=== PATIENT | male | born 1990 | race Hispanic/Latino ===

== ENCOUNTER 2018-05-07 08:32 | Emergency (ER) | payer OTHER ==
[2018-05-07] MEDS ORDERED: KETOROLAC TROMETHAMINE 60 MG/2 ML VIAL ONE (09:06)
[2018-05-07] MEDS ORDERED: DEXAMETHASONE SOD PHOSPHATE 10MG/ML 1ML VIAL ONE (09:06)
[2018-05-07] MEDS ORDERED: PEN G BENZ/PEN G PROCAINE 1,200,000 UNIT/2 ML ML IM ONE (09:50)
== END 2018-05-07 10:00 | disposition home or self-care (01) ==
LOC: EDH 08:32
DX: J02.0 Streptococcal pharyngitis (principal)
CPT/HCPCS: 87880; 96372 ×3; 99283; J0558; J1100; J1885

== ENCOUNTER 2019-10-13 10:10 | Inpatient (IN) | payer OTHER ==
[~2019-10-13] VITALS: Ht 162.6 cm; Wt 89.1 kg
[2019-10-13] MEDS ORDERED: ONDANSETRON HCL 4 MG/2 ML VIAL ONE (10:20)
[2019-10-13] MEDS ORDERED: FAMOTIDINE/PF 20 MG/2 ML VIAL IV ONE (10:20)
[2019-10-13 10:43] LABS: BASOPHILS % (AUTO) 0.1 % (0.0-5.0); LYMPHOCYTES % (AUTO) 5.1 % (21.0-51.0); MEAN CORPUSCULAR HEMOGLOBIN 29.6 pg (27.0-33.0); MEAN CORPUSCULAR HGB CONC 34.3 g/dL (32.0-36.0); MEAN CORPUSCULAR VOLUME 86.3 fL (79-99); MONOCYTES % (AUTO) 2.1 % (3.0-13.0); NEUTROPHILS % (AUTO) 92.4 % (40.0-77.0); PLATELET COUNT (AUTO) 311 K/uL (130-400); RED BLOOD CELL COUNT(AUTO) 5.68 MIL/uL (4.50-6.20); RED CELL DISTRIBUTION WIDTH 13.1 % (11.0-15.5); WHITE BLOOD COUNT (AUTO) 12.1 K/uL (4.8-10.8)
[2019-10-13] MEDS ORDERED: MORPHINE SULFATE 4 MG/1ML SYG ONE (10:49)
[2019-10-13 11:09] LABS: ALBUMIN 4.3 g/dL (3.5-5.0); BILIRUBIN,TOTAL 0.5 mg/dL (0.2-1.0); POTASSIUM 4.1 mmol/L (3.5-5.1); TOTAL PROTEIN, SERUM 8.9 g/dL (6.0-8.3)
[2019-10-13 12:39] LABS: APPEARANCE,URINE Clear (CLEAR); BILIRUBIN,URINE Negative (NEGATIVE); COLOR,URINE Dark Yellow (YELLOW); GLUCOSE, URINE (UA) Negative (NEGATIVE); KETONES,URINE 15 mg/dL (NEGATIVE); LEUKOCYTE ESTERASE ,URINE Negative (NEGATIVE); NITRATE,URINE Negative (NEGATIVE); OCCULT BLOOD,URINE Negative (NEGATIVE); PROTEIN,URINE Trace mg/dL (NEGATIVE)
[2019-10-13] MEDS ORDERED: ONDANSETRON HCL 4 MG/2 ML VIAL IV PRN (12:45)
[2019-10-13 13:21] LABS: BACTERIA,URINE Rare /HPF (None Seen); MUCUS,URINE Few LPF (None Seen); RBC,URINE 0-1 /HPF (0-1); SQUAMOUS EPITHELIAL CELL,UR Rare /HPF (0-2); WBC,URINE 0-1 /HPF (0-1)
[2019-10-13 14:26] VITALS: BP 139/76
[2019-10-13] MEDS: SODIUM CHLORIDE 0.9% 1000ML 1,000 ML IV SCH ×2 (16:26→16:29)
[2019-10-13] MEDS: METRONIDAZOLE 500 MG TABLET PO SCH ×2 (16:28→21:05)
[2019-10-13] MEDS: ZOSYN 3.375GM+NS 50ML 50 ML IV SCH ×2 (16:28→21:05)
[2019-10-13] MEDS: MORPHINE SULFATE 2 MG/ML 1ML SYG IV PRN (16:29)
--- NOTE | 2019-10-13 16:30 | NUR ---
MEDICATED FOR ABD. PAIN.
[2019-10-13 16:36] VITALS: BP 135/81
[2019-10-13] MEDS: METOCLOPRAMIDE 10 MG/2 ML VIAL IVP SCH (18:35)
[2019-10-13] MEDS: FAMOTIDINE/PF 20 MG/2 ML VIAL IV SCH (18:36)
[2019-10-13 20:00] VITALS: BP 127/73
[2019-10-14] VITALS (25 sets, daily range): BP systolic 112–130; BP diastolic 60–85
[2019-10-14] MEDS: METOCLOPRAMIDE 10 MG/2 ML VIAL IVP SCH ×4 (00:06→17:50)
[2019-10-14] MEDS: SODIUM CHLORIDE 0.9% 1000ML 1,000 ML IV SCH ×2 (03:54→18:39)
[2019-10-14 05:31] LABS: BASOPHILS % (AUTO) 0.2 % (0.0-5.0); EOSINOPHILS % (AUTO) 0.4 % (0.0-8.0); HEMATOCRIT 43.4 % (42-54); LYMPHOCYTES % (AUTO) 14.8 % (21.0-51.0); MEAN CORPUSCULAR HEMOGLOBIN 30.2 pg (27.0-33.0); MEAN CORPUSCULAR HGB CONC 34.3 g/dL (32.0-36.0); MEAN CORPUSCULAR VOLUME 87.9 fL (79-99); MONOCYTES % (AUTO) 5.8 % (3.0-13.0); NEUTROPHILS % (AUTO) 78.4 % (40.0-77.0); PLATELET COUNT (AUTO) 285 K/uL (130-400); RED BLOOD CELL COUNT(AUTO) 4.94 MIL/uL (4.50-6.20); RED CELL DISTRIBUTION WIDTH 13.3 % (11.0-15.5); WHITE BLOOD COUNT (AUTO) 10.1 K/uL (4.8-10.8)
[2019-10-14 06:05] LABS: ALBUMIN 3.6 g/dL (3.5-5.0); BILIRUBIN,TOTAL 0.7 mg/dL (0.2-1.0); TOTAL PROTEIN, SERUM 7.6 g/dL (6.0-8.3)
[2019-10-14] MEDS: ZOSYN 3.375GM+NS 50ML 50 ML IV SCH ×4 (06:08→20:38)
[2019-10-14] MEDS: FAMOTIDINE/PF 20 MG/2 ML VIAL IV SCH ×2 (08:38→20:37)
[2019-10-14] MEDS: MORPHINE SULFATE 2 MG/ML 1ML SYG IV PRN ×2 (08:50→17:51)
[2019-10-14] MEDS: METRONIDAZOLE 500 MG TABLET PO SCH (09:00)
--- NOTE | 2019-10-14 09:30 | NUR ---
TRANSFER pt returned from PACU via bed dressing right foot clean and dry evert wrap ,awake denies any pain
[2019-10-14] MEDS ORDERED: LACTATED RINGERS 1000ML 1,000 ML IV ONE (12:33)
[2019-10-14] MEDS ORDERED: SUCCINYLCHOLINE CHLORIDE 20 MG/ML 10 ML VIAL ONE ×2 (12:51→12:54)
[2019-10-14] MEDS ORDERED: PROPOFOL 10 MG/ML 20ML VIAL IV ONE (12:51)
[2019-10-14] MEDS ORDERED: MIDAZOLAM HCL 1 MG/ML 2ML VIAL ONE ×2 (12:51→14:25)
[2019-10-14] MEDS ORDERED: LIDOCAINE PF 2% 5ML ABBOJECT ONE (12:51)
[2019-10-14] MEDS ORDERED: FENTANYL CITRATE PF 50 MCG/1 ML 2ML VIAL ONE ×2 (12:52→14:04)
[2019-10-14] MEDS ORDERED: ROCURONIUM 10MG/1ML SYR 10 MG/ML ML ONE ×2 (12:52→13:34)
--- NOTE | 2019-10-14 13:05 | NUR ---
DCP CM spoke to pt discussed dc plans. Pt is independent prior to admission, lives at home with spouse. Denies any equipments/services. Uses [facility] for meds. Feels safe to go back home, still drives and works, spouse able to assist with transportation and needs as necessary. Pt is self pay, no SS#, [facility] assisting, given [employer] packet. Patient verbalized 2nd emergency contact in case needed, sister in law Arslan Sanford . DC plan to home once stable. CM to cont to follow up. Addendum: 10/14/19 at 1308 by JULIUS DOMINGUEZ LVN CM Amended: Links added.
[2019-10-14] MEDS ORDERED: BUPIVACAINE/PF 0.5% 30ML VIAL ONE (13:57)
[2019-10-14] MEDS ORDERED: GLYCOPYRROLATE 1 MG/5 ML SYRINGE ONE ×2 (13:58→13:59)
[2019-10-14] MEDS ORDERED: NEOSTIGMINE 5MG/5ML SYR IV ONE (13:59)
[2019-10-14] MEDS ORDERED: ONDANSETRON HCL 4 MG/2 ML VIAL ONE (14:02)
[2019-10-14] MEDS ORDERED: DEXAMETHASONE SOD PHOSPHATE 10MG/ML 1ML VIAL ONE (14:02)
[2019-10-14] MEDS ORDERED: MEPERIDINE-PF 25 MG/ML SYG ONE (14:42)
[2019-10-14] MEDS: METRONIDAZOLE 500MG/100ML BAG 100 ML IV SCH (22:15)
[2019-10-15] VITALS (7 sets, daily range): BP systolic 108–128; BP diastolic 51–65
[2019-10-15] MEDS: METOCLOPRAMIDE 10 MG/2 ML VIAL IVP SCH ×4 (00:10→18:16)
[2019-10-15] MEDS: MORPHINE SULFATE 2 MG/ML 1ML SYG IV PRN ×2 (00:14→10:47)
--- NOTE | 2019-10-15 00:14 | NUR ---
ERASMO Pt encouraged to do IS. Addendum: 10/15/19 at 1309 by CHARIS GOLDMAN RN RN PAIN Medicated with Morphine for pain.
--- NOTE | 2019-10-15 04:00 | NUR ---
ACTIVITY Pt encouraged to get up,out of bed,states it hurts too much.Encouraged to TCDB and do IS,able to perform and teach back instructions given.
[2019-10-15 04:36] LABS: BASOPHILS % (AUTO) 0.2 % (0.0-5.0); HEMATOCRIT 39.5 % (42-54); LYMPHOCYTES % (AUTO) 7.6 % (21.0-51.0); MEAN CORPUSCULAR HEMOGLOBIN 29.6 pg (27.0-33.0); MEAN CORPUSCULAR HGB CONC 33.9 g/dL (32.0-36.0); MEAN CORPUSCULAR VOLUME 87.4 fL (79-99); MONOCYTES % (AUTO) 6.4 % (3.0-13.0); NEUTROPHILS % (AUTO) 85.4 % (40.0-77.0); PLATELET COUNT (AUTO) 268 K/uL (130-400); RED BLOOD CELL COUNT(AUTO) 4.52 MIL/uL (4.50-6.20); WHITE BLOOD COUNT (AUTO) 11.9 K/uL (4.8-10.8)
[2019-10-15 04:47] LABS: CREATININE 0.9 mg/dL (0.5-1.5); POTASSIUM 4.3 mmol/L (3.5-5.1)
[2019-10-15] MEDS: SODIUM CHLORIDE 0.9% 1000ML 1,000 ML IV SCH ×2 (04:50→14:39)
[2019-10-15] MEDS: METRONIDAZOLE 500MG/100ML BAG 100 ML IV SCH ×3 (04:50→20:44)
[2019-10-15] MEDS: ZOSYN 3.375GM+NS 50ML 50 ML IV SCH ×3 (04:50→20:44)
[2019-10-15] MEDS: FAMOTIDINE/PF 20 MG/2 ML VIAL IV SCH ×2 (10:46→20:44)
--- NOTE | 2019-10-15 13:00 | NUR ---
SKIN TEAR pt c/o tenderness under abd binder x2 skin tears present from surgical dressing removed 10-15-19 Dr Sun aware of skin tear ,dressed skin tear with non adherent dressing and transparent tegaderm
[2019-10-15] MEDS: KETOROLAC TROMETHAMINE 30MG/ML IV SCH ×2 (16:51→20:00)
--- NOTE | 2019-10-15 19:00 | NUR ---
BOWEL SOUNDS pt states he feels rolling in abdominal area ,hypoactive bowel sounds auscultated
--- NOTE | 2019-10-15 21:00 | NUR ---
POST OP DAY 2 Pt appears more awake and comfortable today,denies pain or discomfort.Abdomen soft,hypoactive bowel sounds.Remains NPO.
[2019-10-16] MEDS: KETOROLAC TROMETHAMINE 30MG/ML IV SCH ×4 (00:14→20:00)
[2019-10-16] MEDS: METOCLOPRAMIDE 10 MG/2 ML VIAL IVP SCH ×5 (00:14→23:27)
[2019-10-16] MEDS: SODIUM CHLORIDE 0.9% 1000ML 1,000 ML IV SCH ×3 (00:39→21:55)
[2019-10-16 04:00] VITALS: BP 107/58
[2019-10-16] MEDS: METRONIDAZOLE 500MG/100ML BAG 100 ML IV SCH ×3 (04:49→21:55)
[2019-10-16] MEDS: ZOSYN 3.375GM+NS 50ML 50 ML IV SCH ×3 (04:49→21:55)
[2019-10-16 05:34] LABS: BASOPHILS % (AUTO) 0.2 % (0.0-5.0); EOSINOPHILS % (AUTO) 0.3 % (0.0-8.0); HEMATOCRIT 38.7 % (42-54); LYMPHOCYTES % (AUTO) 20.9 % (21.0-51.0); MEAN CORPUSCULAR HGB CONC 33.9 g/dL (32.0-36.0); MEAN CORPUSCULAR VOLUME 88.6 fL (79-99); MONOCYTES % (AUTO) 7.7 % (3.0-13.0); NEUTROPHILS % (AUTO) 70.7 % (40.0-77.0); PLATELET COUNT (AUTO) 244 K/uL (130-400); RED BLOOD CELL COUNT(AUTO) 4.37 MIL/uL (4.50-6.20); RED CELL DISTRIBUTION WIDTH 12.7 % (11.0-15.5); WHITE BLOOD COUNT (AUTO) 9.7 K/uL (4.8-10.8)
[2019-10-16 05:46] LABS: BILIRUBIN,TOTAL 0.8 mg/dL (0.2-1.0); CREATININE 0.9 mg/dL (0.5-1.5); POTASSIUM 3.7 mmol/L (3.5-5.1); TOTAL PROTEIN, SERUM 7.1 g/dL (6.0-8.3)
[2019-10-16 08:00] VITALS: BP 115/71
[2019-10-16] MEDS: FAMOTIDINE/PF 20 MG/2 ML VIAL IV SCH ×2 (10:55→21:55)
[2019-10-16 12:00] VITALS: BP 138/85
[2019-10-16 16:00] VITALS: BP 125/82
[2019-10-16 19:20] VITALS: BP 119/68
[2019-10-16 23:29] VITALS: BP 137/86
[2019-10-17] MEDS: KETOROLAC TROMETHAMINE 30MG/ML IV SCH ×3 (01:32→14:00)
[2019-10-17 03:20] VITALS: BP 112/74
[2019-10-17 03:59] LABS: BASOPHILS % (AUTO) 0.1 % (0.0-5.0); EOSINOPHILS % (AUTO) 0.7 % (0.0-8.0); HEMATOCRIT 35.5 % (42-54); LYMPHOCYTES % (AUTO) 21.9 % (21.0-51.0); MEAN CORPUSCULAR HEMOGLOBIN 29.4 pg (27.0-33.0); MEAN CORPUSCULAR HGB CONC 34.1 g/dL (32.0-36.0); MEAN CORPUSCULAR VOLUME 86.4 fL (79-99); MONOCYTES % (AUTO) 7.9 % (3.0-13.0); PLATELET COUNT (AUTO) 249 K/uL (130-400); RED BLOOD CELL COUNT(AUTO) 4.11 MIL/uL (4.50-6.20); RED CELL DISTRIBUTION WIDTH 12.5 % (11.0-15.5); WHITE BLOOD COUNT (AUTO) 8.4 K/uL (4.8-10.8)
[2019-10-17 04:20] LABS: ALBUMIN 2.9 g/dL (3.5-5.0); BILIRUBIN,TOTAL 0.6 mg/dL (0.2-1.0); POTASSIUM 3.7 mmol/L (3.5-5.1); TOTAL PROTEIN, SERUM 6.8 g/dL (6.0-8.3)
[2019-10-17] MEDS: METRONIDAZOLE 500MG/100ML BAG 100 ML IV SCH ×2 (05:15→11:13)
[2019-10-17] MEDS: METOCLOPRAMIDE 10 MG/2 ML VIAL IVP SCH ×2 (05:16→11:09)
[2019-10-17] MEDS: ZOSYN 3.375GM+NS 50ML 50 ML IV SCH ×2 (06:33→11:09)
[2019-10-17] MEDS: SODIUM CHLORIDE 0.9% 1000ML 1,000 ML IV SCH (06:33)
[2019-10-17 08:00] VITALS: BP 126/83
[2019-10-17] MEDS: FAMOTIDINE/PF 20 MG/2 ML VIAL IV SCH (11:08)
[2019-10-17 12:00] VITALS: BP 119/74
== END 2019-10-17 16:45 | disposition home or self-care (01) | DRG 355 ==
LOC: EDH 10:10 → 3CH 10:11
PROVIDERS: ADMIT Hospitalist; ATTEND Hospitalist
PROC: 0D9670Z Drainage of Stomach with Drainage Device, Via Natural or Artificial Opening (ICD-10-PCS; 2019-10-13)
PROC: 0WQF0ZZ Repair Abdominal Wall, Open Approach (ICD-10-PCS; principal; 2019-10-14 12:55)
DX: K43.0 Incisional hernia with obstruction, without gangrene (principal); K43.6 Other and unspecified ventral hernia with obstruction, without gangrene; K21.9 Gastro-esophageal reflux disease without esophagitis; D72.829 Elevated white blood cell count, unspecified; Z90.49 Acquired absence of other specified parts of digestive tract
CPT/HCPCS: 36415; 74176; 80048; 80053; 81001; 83690; 85025; 87040; G0378; J0330; J1100; J1885; J2001; J2175; J2250; J2270; J2405; J2543; J2704; J2710; J2765; J3010; J3490; J7030; J7120

== ENCOUNTER 2023-07-18 02:40 | Emergency (ER) | payer OTHER ==
[~2023-07-18] VITALS: Ht 172.7 cm; Wt 80.7 kg
[2023-07-18] MEDS: MAG/ALUM/SIMETH 30 ML UDCUP PO ONE (02:56)
[2023-07-18] MEDS: LIDOCAINE HCL 2% VISCOUS 15 ML UDCUP PO ONE (02:56)
[2023-07-18] MEDS: LACTATED RINGERS 1000ML 1,000 ML IV ONE (02:56)
[2023-07-18] MEDS: PANTOPRAZOLE 40 MG/VIAL IVP ONE (02:56)
[2023-07-18 03:38] LABS: ALBUMIN 3.6 g/dL (3.5-5.0); BILIRUBIN,TOTAL 0.2 mg/dL (0.2-1.0); CREATININE 0.8 mg/dL (0.5-1.3); POTASSIUM 3.3 mmol/L (3.5-5.1); TOTAL PROTEIN, SERUM 7.3 g/dL (6.0-8.3)
[2023-07-18] MEDS: POTASSIUM BICARB/CIT AC 25 MEQ TABLET.EFF PO STA (04:31)
[2023-07-18 04:32] LABS: APPEARANCE,URINE CLEAR (CLEAR); BILIRUBIN,URINE NEGATIVE (NEGATIVE); COLOR,URINE YELLOW (YELLOW); GLUCOSE, URINE (UA) NEGATIVE (NEGATIVE); KETONES,URINE NEGATIVE (NEGATIVE); LEUKOCYTE ESTERASE ,URINE NEGATIVE Leu/uL (NEGATIVE); NITRATE,URINE NEGATIVE (NEGATIVE); OCCULT BLOOD,URINE NEGATIVE (NEGATIVE); PROTEIN,URINE NEGATIVE (NEGATIVE); UROBILINOGEN,URINE 0.2 mg/dL (0.2-1.0)
[2023-07-18 04:44] LABS: ADD UA MICROSCOPIC NO
[2023-07-18 05:08] LABS: BASOPHILS # (AUTO) 0.02 K/uL (0.00-0.20); BASOPHILS % (AUTO) 0.3 % (0.0-5.0); EOSINOPHILS # (AUTO) 0.17 K/uL (0.00-0.70); HEMATOCRIT 42.2 % (42-54); IMMATURE GRANULOCYTE ABSOLUTE 0.01 K/uL (0-1); LYMPHOCYTES # (AUTO) 1.7 K/uL (1.0-4.8); LYMPHOCYTES % (AUTO) 29.8 % (21.0-51.0); MEAN CORPUSCULAR HEMOGLOBIN 30.9 pg (27.0-33.0); MEAN CORPUSCULAR HGB CONC 35.5 g/dL (32.0-36.0); MONOCYTES # (AUTO) 0.5 K/uL (0.1-1.0); NEUTROPHILS # (AUTO) 3.4 K/uL (1.8-7.7); NEUTROPHILS % (AUTO) 58.7 % (40.0-77.0); PLATELET COUNT (AUTO) 248 K/uL (130-400); RED BLOOD CELL COUNT(AUTO) 4.85 MIL/uL (4.50-6.20); RED CELL DISTRIBUTION WIDTH 12.6 % (11.0-15.5); WHITE BLOOD COUNT (AUTO) 5.7 K/uL (4.8-10.8)
[2023-07-18 05:16] LABS: AMPHET/METH SCREEN,URINE NEGATIVE (NEGATIVE); BARBITURATE SCREEN, URINE NEGATIVE (NEGATIVE); BENZODIAZEPINES SCREEN,URINE NEGATIVE (NEGATIVE); CANNABINOID SCREEN,URINE NEGATIVE (NEGATIVE); COCAINE SCREEN,URINE POSITIVE (NEGATIVE); OPIATE SCREEN,URINE NEGATIVE (NEGATIVE); PHENCYCLIDINE SCREEN,URINE NEGATIVE (NEGATIVE)
[2023-07-18] MEDS: KETOROLAC 30MG VIAL (30MG/ML) IVP ONE (05:41)
[2023-07-18] MEDS ORDERED: IOHEXOL 350 MG/ML 100ML INFUS..BTL IV ONE (05:52)
[2023-07-18 08:47] VITALS: BP 135/92; PULSE 70; RESP 20; O2SAT 98
== END 2023-07-18 08:56 | disposition home or self-care (01) ==
LOC: EDH 02:40
DX: K80.20 Calculus of gallbladder without cholecystitis without obstruction (principal); K21.9 Gastro-esophageal reflux disease without esophagitis
CPT/HCPCS: 99285; 74177; 96374; 96375; 82550; 84484; 80053; 80305; 83690; 85025; 36415; 93005; 81003; J7120; J1885; C9113; Q9967

== ENCOUNTER 2024-04-28 17:13 | Emergency (ER) | payer SELFPAY ==
[~2024-04-28] VITALS: Ht 172.7 cm; Wt 83.9 kg
--- NOTE | 2024-04-28 17:23 | ERN ---
ED Note History of Present Illness Stated Complaint: ABDOMINAL PAIN Chief Complaint: Abdominal Pain Time Seen by MD: 17:14 Dictation: PATIENT IS A 33-YEAR-OLD MALE COMING IN TODAY WITH COMPLAINTS OF EPIGASTRIC PAIN WITH NAUSEA VOMITING AND DIARRHEA ONSET THIS MORNING. NO FEVER NO CHILLS NO BACK PAIN NO CHEST PAIN. NO PRIMARY CARE DOCTOR STATES HE ONLY GOES TO EMERGENCY ROOMS FOR HEALTH CARE. Allergies: Coded Allergies: No Known Allergies (Verified Allergy, Unknown, 10/13/19) Home Meds No Active Prescriptions or Reported Meds Past Medical History Past Medical History: GERD Surgical History: Other Surgical History Other: HERNIA REPAIR RN Note Reviewed/Agreed w/PFSH: Yes Review of System Dictation CONSTITUTIONAL: NEGATIVE EXCEPT FOR HPI HEAD/FACE: NEGATIVE EXCEPT FOR HPI EENT: NEGATIVE EXCEPT FOR HPI RESPIRATORY: NEGATIVE EXCEPT FOR HPI GASTROINTESTINAL/ABDOMINAL: NEGATIVE EXCEPT FOR HPI EPIGASTRIC PAIN WITH NAUSEA VOMITING AND DIARRHEA GENITOURINARY: NEGATIVE EXCEPT FOR HPI MUSCULOSKELETAL: NEGATIVE EXCEPT FOR HPI INTEGUMENTARY: NEGATIVE EXCEPT FOR HPI NEUROLOGICAL/PSYCH: NEGATIVE EXCEPT FOR HPI HEMATOLOGIC/LYMPHATIC: NEGATIVE EXCEPT FOR HPI ALL SYSTEMS NEGATIVE, EXCEPT NOTED ABOVE. 13 POINT REVIEW OF SYSTEMS ASSESSED AND ALL NEGATIVE EXCEPT FOR ABOVE. Initial Vital Sign VS Vital Signs Date Time Temp Pulse Resp B/P (MAP) Pulse Ox O2 Delivery O2 Flow Rate FiO2 04/28/24 17:16 99.3 119 16 122/83 97 Room Air Physical Exam Dictation VITAL SIGNS REVIEWED GENERAL APPEARANCE: ALERT, ORIENTED X 3, NO ACUTE DISTRESS, WELL DEVELOPED, NOURISHED. HEAD AND FACE: NON-TRAUMATIC. EYES: PERRL, PINK CONJUNCTIVAS, EYELID NO TRAUMA, ANTERIOR CHAMBER WITH ARCUS SENILIS. EARS: PINNAS INTACT AND NO SIGNS OF TRAUMA OR ERYTHEMA EAR CANALS CLEAR AND NO DISCHARGE TM NO ERYTHEMA NOSE: NO DISCHARGE, NO BLEEDING. OROPHARYNX: MOUTH NORMAL, TONGUE PINK, PHARYNX CLEAR,NO ERYTHEMA, TONSILS NO EXUDATES, NO ABSCESSES NOTED, MUCOUS MEMBRANE MOIST NECK: SUPPLE, NON-TENDER, NO THYROMEGALY, NO MASSES, NO JVD, NO BRUITS BREAST:DEFERRED CHEST:NO TENDERNESS, NO CREPITUS, NO PARADOXICAL MOVEMENT, NO RETRACTIONS LUNGS:CLEAR, WELL-VENTILATED, SYMMETRIC, NO RALES, NO WHEEZING, NO RHONCHI, NO STRIDOR, GOOD BREATH SOUNDS BILATERALLY HEART: REGULAR RATE, REGULAR RHYTHM, NO MURMUR, NO GALLOPS VASCULAR: NO PERIPHERAL EDEMA, ABDOMEN: SOFT, POSITIVE BOWEL SOUNDS, NONDISTENDED, NO GUARDING, MILD EPIGASTRIC TENDERNESS, NO REBOUND, NO MASSES NO HEPATOMEGALY, NO SPLENOMEGALY, NO PANTOJA'S SIGN, NO HERNIAS. RECTAL: DEFERRED GENITAL: DEFERRED NEUROLOGICAL: NORMAL SPEECH, MOTOR FUNCTION INTACT, SENSORY FUNCTION INTACT MUSCULOSKELETAL: NECK NONTENDER, FULL RANGE OF MOTION, BACK NONTENDER, FULL RANGE OF MOTION, EXTREMITIES: NONTENDER, FULL RANGE OF MOTION SKIN: COLOR PINK, DRY, NO TURGOR, NO RASH, NO LACERATIONS, NO ABRASIONS, NO CONTUSIONS. LYMPHATIC: DEFERRED Results (Laboratory/Radiology) Laboratory/Radiology Laboratory Tests Test 04/28/24 17:37 04/28/24 19:32 White Blood Count 9.8 K/uL (4.8-10.8) Red Blood Count 5.85 MIL/uL (4.50-6.20) Hemoglobin 17.5 g/dL (14.0-18.0) Hematocrit 50.6 % (42-54) Mean Corpuscular Volume 86.5 fL (79-99) Mean Corpuscular Hemoglobin 29.9 pg (27.0-33.0) Mean Corpuscular Hemoglobin Concent 34.6 g/dL (32.0-36.0) Red Cell Distribution Width 13.2 % (11.0-15.5) Platelet Count 272 K/uL (130-400) Mean Platelet Volume 9.8 fL (7.5-10.5) Immature Granulocyte % (Auto) 0.2 % (0-1) Neutrophils (%) (Auto) 90.9 % (40.0-77.0) H Lymphocytes (%) (Auto) 3.1 % (21.0-51.0) L Monocytes (%) (Auto) 5.6 % (3.0-13.0) Eosinophils (%) (Auto) 0.1 % (0.0-8.0) Basophils (%) (Auto) 0.1 % (0.0-5.0) Neutrophils # (Auto) 8.9 K/uL (1.8-7.7) H Lymphocytes # (Auto) 0.3 K/uL (1.0-4.8) L Monocytes # (Auto) 0.6 K/uL (0.1-1.0) Eosinophils # (Auto) 0.01 K/uL (0.00-0.70) Basophils # (Auto) 0.01 K/uL (0.00-0.20) Absolute Immature Granulocyte (auto 0.02 K/uL (0-1) Nucleated Red Blood Cells 0.0 % (0.0-0.19) White Cell Morphology Comment See comments Sodium Level 135 mmol/L (136-145) L Potassium Level 4.1 mmol/L (3.5-5.1) Chloride Level 97 mmol/L (101-111) L Carbon Dioxide Level 30 mmol/L (21-32) Blood Urea Nitrogen 18 mg/dL (7-18) Creatinine 1.4 mg/dL (0.5-1.3) H Glomerular Filtration Rate Calc 67 mL/min (>90) Random Glucose 111 mg/dL (70-105) H Total Calcium 9.1 mg/dL (8.5-10.1) Lipase 42 U/L (16-77) Urine Color YELLOW (YELLOW) Urine Appearance CLOUDY (CLEAR) H Urine pH 6.0 (5.0-8.0) Urine Specific [place] 1.033 (1.001-1.031) Urine Protein 200 mg/dL (NEGATIVE) H Urine Glucose (UA) 30 mg/dL (NEGATIVE) H Urine Ketones 5 mg/dL (NEGATIVE) H Urine Occult Blood NEGATIVE (NEGATIVE) Urine Nitrate NEGATIVE (NEGATIVE) Urine Bilirubin NEGATIVE mg/dL (NEGATIVE) Urine Urobilinogen 2.0 mg/dL (0.2-1.0) H Urine Leukocyte Esterase NEGATIVE Joselyn/uL Labs Reviewed?: Yes ED Course ED Course Orders Procedure Category Date Status Time Ondansetron Odt 4mg PHA 04/28/24 Complete Tab (Zofran 4mg Odt) 17:30 Cbc With Differential LAB 04/28/24 Complete 17:20 Urinalysis Profile LAB 04/28/24 In Process 17:20 Lipase LAB 04/28/24 Complete 17:20 Basic Metabolic Panel LAB 04/28/24 Complete 17:20 Current Medications Medications (Trade) Dose Ordered Sig/[place] Route PRN Reason Start Time Stop Time Status Last Admin Dose Admin Ondansetron HCl (zoFRAN 4MG ODT) 4 mg ONCE ONCE SL 04/28/24 17:30 04/28/24 17:31 DC Vital Signs Date Time Temp Pulse Resp B/P (MAP) Pulse Ox O2 Delivery O2 Flow Rate FiO2 04/28/24 17:16 99.3 119 16 122/83 97 Room Air 1945 GI WORKUP UNREMARKABLE PATIENT WILL BE DISCHARGED HOME WITH ACUTE GASTRITIS, WE WILL BE GIVEN ZOFRAN AND CARAFATE WITH BENTYL TOLD TO SEE HIS PRIMARY CARE DOCTOR IN 1-2 DAYS AND CLEAR LIQUID DIET ONLY Medical Decision Making MDM MEDICAL DISCHARGE MAKING BASED ON BASIC LABS FOR ABDOMINAL PAIN. WORKUP IS NEGATIVE NO ACTIVE VOMITING AT THIS TIME. PATIENT DISCHARGED HOME WITH CARAFATE/BENTYL/ZOFRAN TOLD SEE HIS PRIMARY CARE DOCTOR FOR FOLLOW UP DX & DISP Disposition: Discharge Departure Impression: Primary Impression: Acute gastritis Additional Impression: Nausea & vomiting Condition: Stable Scripts Ondansetron (Ondansetron Odt) 4 Mg Tab.rapdis 4 MG PO Q6HPRN PRN for nausea, #16 TAB 0 Refills Prov: EZIO NOONAN ICD 9 CODER 04/28/24 Dicyclomine HCl (Bentyl) 20 Mg Tab 20 MG PO Q6HPRN PRN for ABDOMINAL CRAMPS, #20 TAB Prov: EZIO NOONAN ICD 9 CODER 04/28/24 Sucralfate (Carafate) 1 Gram Tablet 1 GM PO ACHS for 7 Days, #28 TAB Prov: EZIO NOONAN ICD 9 CODER 04/28/24 Omeprazole (Omeprazole) 40 Mg Capsule.dr 1 CAP PO DAILY for 30 Days, #30 CAP 0 Refills Prov: EZIO NOONAN ICD 9 CODER 04/28/24 Additional Instructions: FOLLOW-UP WITH PRIMARY CARE PROVIDER IN 1 TO 2 DAYS. TAKE MEDICATIONS DIRECTED HERE IN THE EMERGENCY ROOM. OKAY TO CONTINUE HOME MEDICATIONS UNLESS OTHERWISE DISCUSSED DURING YOUR VISIT IN THE EMERGENCY ROOM TODAY. RETURN TO YOUR NEAREST EMERGENCY ROOM IF SYMPTOMS WORSEN OR IF THERE IS NO IMPROVEMENT. CALL 911 IF YOU NEED IMMEDIATE ASSISTANCE. TAKE TYLENOL OR MOTRIN [id number] NEEDED AND IF NO CONTRAINDICATIONS ARE PRESENT. INCREASE ORAL HYDRATION. A WOUND CULTURE OR URINE CULTURE WAS ORDERED HERE IN THE EMERGENCY ROOM DEPARTMENT PLEASE FOLLOW-UP WITH PRIMARY CARE PROVIDER AND ADVISE THEM TO GET REPEAT PORTS FROM OUR FACILITY. IF YOU HAD ANY ADOLFO WRAP/SPLINTS THAT WERE APPLIED HERE, PLEASE DO NOT REMOVE THEM UNTIL YOU SEE YOUR PRIMARY CARE OR SPECIALTY. SUGGEST CLEAR LIQUID DIET FOR THE NEXT24 HOURS AND THEN ADVANCE DIET SLOWLY TOMORROW AFTERNOON TO REGULAR. TAKE OMEPRAZOLE AND CARAFATE DIRECTED. FOL LOW UP WITH YOUR PRIMARY CARE DOCTOR FOR FOLLOW UP Referrals: SELF,REFERRAL (PCP) Time of Disposition: 19:49 I have reviewed the case, and I agree with, Diagnosis and Plan EZIO NOONAN ICD 9 CODER Apr 28, 2024 17:23
[2024-04-28 17:42] LABS: BASOPHILS # (AUTO) 0.01 K/uL (0.00-0.20); BASOPHILS % (AUTO) 0.1 % (0.0-5.0); EOSINOPHILS # (AUTO) 0.01 K/uL (0.00-0.70); EOSINOPHILS % (AUTO) 0.1 % (0.0-8.0); HEMATOCRIT 50.6 % (42-54); IMMATURE GRANULOCYTE ABSOLUTE 0.02 K/uL (0-1); LYMPHOCYTES # (AUTO) 0.3 K/uL (1.0-4.8); LYMPHOCYTES % (AUTO) 3.1 % (21.0-51.0); MEAN CORPUSCULAR HEMOGLOBIN 29.9 pg (27.0-33.0); MEAN CORPUSCULAR HGB CONC 34.6 g/dL (32.0-36.0); MEAN CORPUSCULAR VOLUME 86.5 fL (79-99); MONOCYTES # (AUTO) 0.6 K/uL (0.1-1.0); MONOCYTES % (AUTO) 5.6 % (3.0-13.0); NEUTROPHILS # (AUTO) 8.9 K/uL (1.8-7.7); NEUTROPHILS % (AUTO) 90.9 % (40.0-77.0); PLATELET COUNT (AUTO) 272 K/uL (130-400); RED BLOOD CELL COUNT(AUTO) 5.85 MIL/uL (4.50-6.20); RED CELL DISTRIBUTION WIDTH 13.2 % (11.0-15.5); WHITE BLOOD COUNT (AUTO) 9.8 K/uL (4.8-10.8)
[2024-04-28 17:50] LABS: CREATININE 1.4 mg/dL (0.5-1.3); POTASSIUM 4.1 mmol/L (3.5-5.1)
[2024-04-28 19:46] LABS: ADD UA MICROSCOPIC YES; APPEARANCE,URINE CLOUDY (CLEAR); BILIRUBIN,URINE NEGATIVE (NEGATIVE); COLOR,URINE YELLOW (YELLOW); GLUCOSE, URINE (UA) 30 mg/dL (NEGATIVE); KETONES,URINE 5 mg/dL (NEGATIVE); LEUKOCYTE ESTERASE ,URINE NEGATIVE Leu/uL (NEGATIVE); NITRATE,URINE NEGATIVE (NEGATIVE); OCCULT BLOOD,URINE NEGATIVE (NEGATIVE); PROTEIN,URINE 200 mg/dL (NEGATIVE)
[2024-04-28 19:51] LABS: MUCUS,URINE MANY LPF (None Seen); OTHER CASTS, URINE 5 /LPF (None Seen); SQUAMOUS EPITHELIAL CELL,UR RARE /HPF (0-2)
[2024-04-28] MEDS ORDERED: OMEP40CA21 PO (19:52)
[2024-04-28] MEDS ORDERED: DICY20TA2 PO (19:52)
[2024-04-28] MEDS ORDERED: SUCR1TAB28 PO (19:52)
[2024-04-28] MEDS ORDERED: ONDA-243 PO (19:56)
[2024-04-28 20:13] VITALS: BP 136/76; PULSE 99; RESP 19; TEMP 99.2; O2SAT 98
[2024-04-28] MEDS: ondanSETRON ODT 4MG TAB SL ONE (20:41)
[2024-04-28] MEDS: DICYCLOMINE 20MG (10MG/ML) AMP IM ONE (20:41)
== END 2024-04-28 20:47 | disposition home or self-care (01) ==
LOC: EDH 17:13
DX: K29.00 Acute gastritis without bleeding (principal); R11.2 Nausea with vomiting, unspecified; K21.9 Gastro-esophageal reflux disease without esophagitis; Z98.890 Other specified postprocedural states
CPT/HCPCS: 99283; 80048; 83690; 85025; 81001; 36415; 96372; J0500